=== PATIENT | male | born 1980 | race Caucasian/White ===

== ENCOUNTER 2022-07-22 08:26 | Outpatient (CLI) | payer BC, SELFPAY ==
[2022-07-22 09:44] LABS: Albumin* 4.7 g/dL (3.3-5.0); Chloride* 106 mmol/L (96-114); Sodium* 140 mmol/L (135-149)
[2022-07-22 09:46] LABS: Carbon Dioxide* 25 mmol/L (20-32); Cholesterol* 246 mg/dL (90-199); Creatinine* 1.1 mg/dL (0.5-1.5); Estimated Glomerular Filt Rate 86 ml/min
[2022-07-22 09:47] LABS: Alanine Aminotransferase* 33 U/L (4-50); Alkaline Phosphatase* 56 U/L (40-150); Aspartate Amino Transferase* 27 U/L (12-35); Bilirubin Total* 0.5 mg/dL (0.1-1.5); Blood Urea Nitrogen* 20 mg/dL (5-24); Calcium* 10.1 mg/dL (8.4-10.6); Glucose* 100 mg/dL (60-115); HDL Cholesterol* 63 mg/dL (>=40); LDL Cholesterol Calculated 124 mg/dL (<100); Total Protein* 7.8 g/dL (6.0-8.3); Triglycerides* 293 mg/dL (40-149)
== END 2022-07-22 08:27 | disposition home or self-care (01) ==
LOC: NFLDREF 08:26
PROVIDERS: PCP Family Medicine; Visit Provider Family Medicine
DX: I10 Essential (primary) hypertension (principal); Z13.6 Encounter for screening for cardiovascular disorders
CPT/HCPCS: 80053; 80061

== ENCOUNTER 2022-08-26 09:19 | Outpatient (CLI) | payer BC, SELFPAY | END 2022-08-26 09:20 | disposition home or self-care (01) | LOC: NFLDREF 09:20 | PROVIDERS: PCP Family Medicine; Visit Provider Family Medicine | DX: I10 Essential (primary) hypertension (principal); Z13.6 Encounter for screening for cardiovascular disorders | CPT/HCPCS: 80053; 80061 ==

== ENCOUNTER 2022-12-23 07:57 | Day surgery (SDC) | payer BC, SELFPAY ==
[2022-12-23 08:11] VITALS: BMI 39.5
[2022-12-23 08:30] VITALS: BP 133/98; PULSE 68; RESP 16; TEMP 37.3; O2SAT 98
[2022-12-23] MEDS: LACTATED RINGERS 1000 ML 1,000 ML 100 ML IV (08:31)
[2022-12-23] MEDS: SODIUM CHLORIDE 0.9 % (FLUSH) 10 ML SYRINGE IVF (08:31)
--- NOTE | 2022-12-23 09:09 | W.ANESCHARGE ---
Anesthesia Charges Start Date/Time Anesthesia Start Date: 12/23/22 Anesthesia Start Time: 09:12 Stop Date/Time Anesthesia Stop Date: 12/23/22 Anesthesia Stop Time: 10:04
[2022-12-23] MEDS: BUPIVACAINE 0.5% 30 ML INJECTION (09:31)
--- NOTE | 2022-12-23 09:56 | PM.GSPRC ---
Operative Note Pre-op diagnosis: Desire for sterility Post-op diagnosis: Same Type of Procedure: Vasectomy Indications: Patient is a 42-year-old male who presented to clinic with a desire for permanent sterilization. Risks and benefits of vasectomy were discussed at length with the patient. Risks included, but not limited to: Bleeding, infection, risk of damage to surrounding structures and possible need for additional procedures. I also reviewed with the patient that he should continue to use a secondary form of control until sterilization can be confirmed. Procedure Description: After discussing the risks and benefits of the procedure, the patient signed informed consent.? The operative site was marked and the patient was brought to the operating room and placed on the operating table in supine position.? Care was taken to pad the patient's pressure points.?? The patient was then given sedation by anesthesia.?? The operative site was then prepped and draped in the usual sterile fashion.? A time-out was then performed. Scrotum was prepped and the Surgical site was draped in the usual sterile fashion. I first started on the right side. The right vas deferens was located in the scrotum.The vas was grasped with my fingers. 1% lidocaine with 0.5% Marcaine was injected at the site of surgical incision and around the vas deferens. The right scrotal incision was made with a scalpel. Soft tissues were dissected with a fine dissecting clamp. The vas deferens was clamped with a ring clamp. Fibrous tissue encasing the vas was peeled off bluntly until it was clear. Clips were placed on the proximal and distal ends of the vas deferens and 1 cm segment was excised. This segment was sent to pathology as the right vas deferens. No bleeding was seen. I then proceeded on the left side. The left vas deferens was located in the scrotum. The vas was grasped with my fingers. 1% Lidocaine was injected at the site of surgical incision and around the vas deferens. The left scrotal incision was made with a scalpel. Soft tissues were dissected with a fine dissecting clamp. The vas deferens was clamped with a ring clamp. Fibrous tissue encasing the vas was peeled off bluntly until it was clear. Clips were placed on the proximal and distal ends of the vas deferens and 1 cm segment was excised. This segment was sent to pathology as the left vas deferens. No bleeding was seen. Bilateral incisions were closed with interrupted 4-0 chromic. Incisions were dressed with Dermabond. Sterile dressings were then applied. ? The patient was then woken and transported to the recovery area in stable condition. ? The patient tolerated the procedure well. Anesthesia: MAC and local Surgeon: Erendira Napier MD Estimated blood loss (mL): 2 Additional Specimen Information: 1. Right vas deferens 2. Left vas deferens Condition: stable Disposition: PACU
--- NOTE | 2022-12-23 10:05 | W.ANESCHARGE ---
Anesthesia Charges Start Date/Time Anesthesia Start Date: 12/23/22 Anesthesia Start Time: 09:12 Stop Date/Time Anesthesia Stop Date: 12/23/22 Anesthesia Stop Time: 10:04
[2022-12-23 10:07] VITALS: BP 90/59; PULSE 69; RESP 14; TEMP 36.2; O2SAT 96
[2022-12-23 10:15] VITALS: BP 107/61; PULSE 69; RESP 14; TEMP 36.2; O2SAT 96
[2022-12-23 10:30] VITALS: BP 109/65; PULSE 58; RESP 14; O2SAT 96
[2022-12-23 10:45] VITALS: BP 109/74; PULSE 59; RESP 14; O2SAT 96
[2022-12-23 11:00] VITALS: BP 90/59; PULSE 57; RESP 14; O2SAT 96
== END 2022-12-23 11:20 | disposition home or self-care (01) ==
PROVIDERS: PCP Family Medicine; Visit Provider Surgery
PROC: (CPT 55250; principal; 2022-12-23 09:30)
DX: Z30.2 Encounter for sterilization (principal)
CPT/HCPCS: 55250; 00921; 88302; J0665; J1100; J1885; J2405; J2704; J3010; J7120